=== PATIENT | female | born 1975 | race Caucasian/White ===

== ENCOUNTER 2021-08-26 13:35 | Outpatient (CLI) | payer OTHER, SELFPAY ==
--- NOTE | ~2021-08-26 | MM_ITS ---
EXAMINATION: MM screening [facility] w robin HISTORY: Screening TECHNIQUE: Craniocaudal and mediolateral oblique 3-D tomosynthesis images were obtained and synthetic 2-D images were generated. CAD analysis was submitted and interpreted. COMPARISON: 09/16/2018 BREAST PARENCHYMAL COMPOSITION: There are scattered areas of fibroglandular density. FINDINGS: There is no evidence of suspicious mass, calcification, or architectural distortion to sugg est malignancy in either breast. There has been no suspicious interval change. IMPRESSION: 1. No mammographic evidence of malignancy. 2. Recommend routine screening mammography in one year. BI-RADS Category 1: Negative Reviewed, dictated and finalized at location A. SEARCH MANAGER
== END 2021-08-26 13:36 | disposition home or self-care (01) ==
LOC: ANHIMG 13:40
PROVIDERS: PCP Psychiatry & Neurology Neurology; Visit Provider Nurse Practitioner Obstetrics & Gynecology
DX: Z12.31 Encounter for screening mammogram for malignant neoplasm of breast (principal)
CPT/HCPCS: 77063; 77067